=== PATIENT | female | born 1995 | race Caucasian/White ===

== ENCOUNTER 2022-03-14 16:58 | Emergency (ER) | payer OTHER, SELFPAY ==
--- NOTE | 2022-03-14 18:03 | HMH.EDUTC ---
[facility] [place] Disposition Clinical Impression: Insect bite Qualifiers: Encounter type: initial encounter Site of insect bite: forearm Laterality: right Qualified Code(s): S50.861A - Insect bite (nonvenomous) of right forearm, initial encounter; W57.XXXA - Bitten or stung by nonvenomous insect and other nonvenomous arthropods, initial encounter Cellulitis Qualifiers: Site of cellulitis: extremity Site of cellulitis of extremity: upper extremity Laterality: right Qualified Code(s): L03.113 - Cellulitis of right upper limb Disposition: Home, Self-Care Condition on Discharge: Good Instructions: Cellulitis, Insect Bites and Stings, DI for Insect Bites and Stings Additional Instructions: apply cream antibiotics as ordered follow up with pcp if worsen or no improvement return or be seen in ed benadryl otc Prescriptions: cephALEXin [Cephalexin 500mg Tab] 500 mg PO BID 7 Days #14 tab Prescription Printed Triamcinolone Acetonide 1 applic TP BID 7 Days #15 gm Prescription Printed Referrals: Provider,Referral, MD [Primary Care Provider] - Time of Disposition: 18:13 Medical Decision Making - Jesse Inquiry Pt receiving controlled substance: No [facility] [place] HPI - General Chief complaint: Urgent Treatment Center Stated complaint: possible bug bite Time Seen by Provider: 03/14/22 18:04 Mode of Arrival: Ambulatory Source of Information: Patient Limitations: No Limitations - History of Present Illness Provider Complaint: 26 yr old female presents for bug bites, pt states she is not sure what has biten her she has bites on left thigh and rt forearm. pt states rt forearm has gotten worse and the redness has increased. pt states it itches real bad - Related Data Previous Rx's Medication Instructions Recorded Triamcinolone Acetonide 1 applic TP BID 7 Days #15 gm 03/14/22 cephALEXin [Cephalexin 500mg Tab] 500 mg PO BID 7 Days #14 tab 03/14/22 [facility] History - Hepatitis A Screen Attestation statement:: This patient has been screened for Hepatitis A risk factors. I have reviewed the patient's past medical history: Yes ROS Obtained: Yes Systems reviewed as appropriate & no additional complaints - Constitutional Constitutional: Reports system reviewed and no additional complaints, except as docu, Denies fatigue, Denies fever(s) - Eyes Eyes: Reports system reviewed and no additional complaints, except as docu, Denies eye discharge - ENT Ears, Nose, Mouth, and Throat: Reports system reviewed and no additional complaints, except as docu, Denies otalgia, Denies sore throat - Cardiovascular Cardiovascular: Reports system reviewed and no additional complaints, except as docu, Denies chest pain - Respiratory Respiratory: Reports system reviewed and no additional complaints, except as docu, Denies shortness of breath - Gastrointestinal Gastrointestingal: Reports: system reviewed and no additional complaints, except as docu. Denies: abdominal pain - Musculoskeletal Musculoskeletal: Reports system reviewed and no additional complaints, except as docu, Denies joint pain - Integumentary/Breasts Skin/Breast: Reports system reviewed and no additional complaints, except as docu, Reports itching, Reports rash, Reports skin swelling - Neurologic Neurologic: Reports system reviewed and no additional complaints, except as docu, Denies headache(s) - Endocrine Endocrine: Reports system reviewed and no additional complaints, except as docu, Denies fatigue - Hematologic/Lymphatic Henatologic/Lymphatic: Reports system reviewed and no additional complaints, except as docu, Denies easy bruising - Allergic/Immunologic Allergic/Immunologic: Reports system reviewed and no additional complaints, except as docu, Denies itchy eyes Physical Exam - General General appearance: alert, in no apparent distress - Head Head exam: atraumatic, normocephalic, normal inspection - Eye Eye exam: Present: normal appearance, PERRL - ENT ENT exam:
[2022-03-14 18:10] VITALS: BP 128/83; PULSE 105; RESP 17; TEMP 37.2; O2SAT 98; BMI 19.2
[2022-03-14 18:22] VITALS: BP 128/83; PULSE 105; RESP 17; TEMP 37.2
== END 2022-03-14 18:23 | disposition home or self-care (01) ==
PROVIDERS: Emergency Provider Nurse Practitioner Family
DX: S50.861A Insect bite (nonvenomous) of right forearm, initial encounter (principal); W57.XXXA Bitten or stung by nonvenomous insect and other nonvenomous arthropods, initial encounter; L03.113 Cellulitis of right upper limb
CPT/HCPCS: 99212; G0463

== ENCOUNTER 2022-06-23 03:37 | Emergency (ER) | payer OTHER, SELFPAY ==
[2022-06-23] VITALS (10 sets, daily range): BP systolic 123–145; BP diastolic 83–99; PULSE 78–112; RESP 16–18; TEMP 36.6–36.8; O2SAT 99–100; BMI 20.5
--- NOTE | 2022-06-23 03:36 | ECG_ITS ---
APPROVED REPORT Exam: Resting ECG HR:101 bpm ECG Measurements Heart Rate 101 AXES ID 166 P 75 QRSd 92 QRS 91 QT 332 T 61 QTc 390 Conclusion SINUS TACHYCARDIA BORDERLINE RIGHT AXIS DEVIATION [QRS AXIS > 90] MINIMAL ST DEPRESSION [0.025+ mV ST DEPRESSION] ABNORMAL RHYTHM ECG UNCONFIRMED REPORT Electronically signed by : Renato Ramos MD 06/25/2022 21:30:33
--- NOTE | 2022-06-23 03:40 | XR_ITS ---
PROCEDURE INFORMATION: Exam: XR Chest Exam date and time: 06/23/2022 4:11 AM Age: 26 years old Clinical indication: Pain; Left-sided; Additional info: Cp TECHNIQUE: Imaging protocol: Radiologic exam of the chest. Views: 2 views. COMPARISON: No relevant prior studies available. FINDINGS: Lungs: No acute findings or consolidation. Pleural spaces: No pleural effusion. No pneumothorax. Heart/Mediastinum: No acute findings or cardiomegaly. Bones/joints: No acute findings. IMPRESSION: No acute cardiopulmonary findings.
[2022-06-23 03:52] LABS: Basophils # 0.1 K/mm3 (0-0.2); Basophils % 1.4 % (0.1-2.0); Eosinophils # 0.2 K/mm3 (0.0-0.4); Eosinophils % 1.7 % (0.1-12.0); Hematocrit 44.4 % (37.0-47.0); Hemoglobin 13.6 g/dL (12.2-16.2); Lymphocytes # 3.9 K/mm3 (0.7-4.5); Lymphocytes % 40.3 % (10-50); Mean Corpuscular HGB Conc 30.6 g/dL (31.8-35.4); Mean Corpuscular Hemoglobin 28.8 pg (27.0-31.2); Mean Corpuscular Volume 94.2 fl (81-99); Mean Platelet Volume 7.7 fl (7.4-10.4); Monocytes # 0.5 K/mm3 (0.1-1.0); Monocytes % 4.9 % (1.7-9.3); Neutrophils % 51.7 % (37.0-80.0); Platelet Count 263 K/mm3 (142-424); Red Blood Count 4.71 M/mm3 (4.20-5.40); Red Cell Distribution Width 13.5 % (11.5-17.5); White Blood Count 9.6 K/mm3 (4.8-10.8)
[2022-06-23 04:06] LABS: Alanine Aminotransferase 13 U/L (12-78); Albumin Level 4.5 g/dl (3.5-5.0); Albumin/Globulin Ratio 1.7 (1.1-1.8); Alkaline Phosphatase 52 U/L (38-126); Anion Gap 9.3 mEq/L (5-15); Aspartate Amino Transferase 23 U/L (14-36); Blood Urea Nitrogen 6 mg/dl (7-17); Calcium 8.6 mg/dl (8.4-10.2); Carbon Dioxide 29 mmol/L (22.0-30.0); Chloride 103 mmol/L (98-107); Creatinine Clearance Estimated 170 mL/min (50-200); Estimated Glomerular Filt Rate 149 ml/min (>60); GFR (African American) 180 ML/MIN (>60); Globulin 2.7 g/dL (1.3-3.2); Glucose 90 mg/dl (74-100); Potassium 3.3 mmoL/L (3.5-5.1); Sodium 138 mmol/L (136-145); Total Protein,Serum 7.2 g/dl (6.3-8.2)
[2022-06-23 04:11] LABS: C-Reactive Protein 0.4 mg/L (0-4)
[2022-06-23 04:17] LABS: HCG Qualitative, Serum Negative (Negative)
[2022-06-23 04:18] LABS: Bilirubin,Total < 0.1 mg/dl (0.2-1.3)
[2022-06-23 04:21] LABS: Troponin I < 0.01 ng/ml (0.00-0.034)
[2022-06-23 04:22] LABS: Erythrocyte Sedimentation Rate 5 mm/hr (0-20)
--- NOTE | 2022-06-23 04:23 | PC.NURSE ---
pt back in room from xray
[2022-06-23 04:29] LABS: Procalcitonin < 0.030 ng/mL (0.0-2.0)
--- NOTE | 2022-06-23 04:59 | CT_ITS ---
PROCEDURE INFORMATION: Exam: CTA Chest With Contrast Exam date and time: 06/23/2022 5:08 AM Age: 26 years old Clinical indication: Pain; Left-sided; Additional info: Cp TECHNIQUE: Imaging protocol: Computed tomographic angiography of the chest with contrast. 3D rendering (Not supervised by radiologist): MIP and/or 3D reconstructed images were created by the technologist. Radiation optimization: All CT scans at this facility use at least one of these dose optimization techniques: automated exposure control; mA and/or kV adjustment per patient size (includes targeted exams where dose is matched to clinical indication); or iterative reconstruction. Contrast material: ISOVUE 370; Contrast volume: 70 ml; Contrast route: INTRAVENOUS (IV); COMPARISON: CR XR CHEST 2V 06/23/2022 4:11 AM FINDINGS: Pulmonary arteries: No pulmonary emboli. Aorta: No aortic aneurysm. No aortic dissection. Lungs: No consolidation or infiltrate. No masses. Pleural spaces: No pneumothorax. No pleural effusion. Heart: No cardiomegaly. No pericardial effusion. Lymph nodes: No pathologically enlarged lymph nodes. Bones/joints: No acute fracture. Soft tissues: No acute findings. IMPRESSION: No acute findings.
--- NOTE | 2022-06-23 05:01 | PC.NURSE ---
ER in pt room speaking with pt at this time
--- NOTE | 2022-06-23 05:28 | HMH.EDCP ---
ED Disposition Clinical Impression: Atypical chest pain Disposition: Home, Self-Care Condition on Discharge: Good Instructions: DI for Atypical Chest Pain Additional Instructions: use meds and see pcp for follow up Prescriptions: predniSONE [Prednisone 20mg Tab] 20 mg PO BID #10 tab Transmission Status: Pending to [id number] Referrals: Provider,Referral, [Primary Care Provider] - - Critical Care Critical Care Time: No Attestation: On 06/23/22, the high probability of a clinically significant, sudden or life threatening deterioration of the following system(s) required my full and direct attention, intervention and personal management. The time I documented below is in addition to time spent performing reported procedures but includes the following listed in this critical care notation. Medical Decision Making - Medical Records Medical records reviewed: Yes: I reviewed the patient's medical records. - Jesse Inquiry Pt receiving controlled substance: No Vital Signs: 06/23/22 03:37 06/23/22 04:00 06/23/22 04:15 Temperature 98.2 F Temperature Source Oral Pulse Rate 82 78 Pulse Rate [Right] 112 H Respiratory Rate 16 Blood Pressure 129/83 123/90 Blood Pressure [Right Arm] 135/99 H Blood Pressure Mean Blood Pressure Mean [Right Arm] 111 02 Sat by Pulse Oximetry 99 100 100 Oxygen Delivery Method Room Air Room Air 06/23/22 04:30 06/23/22 04:51 06/23/22 05:05 Temperature Temperature Source Pulse Rate 82 80 85 Pulse Rate [Right] Respiratory Rate Blood Pressure 125/85 124/85 142/95 H Blood Pressure [Right Arm] Blood Pressure Mean Blood Pressure Mean [Right Arm] 02 Sat by Pulse Oximetry 100 100 100 Oxygen Delivery Method Room Air Room Air Room Air 06/23/22 05:36 06/23/22 05:51 06/23/22 06:06 Temperature Temperature Source Pulse Rate 89 85 93 H Pulse Rate [Right] Respiratory Rate Blood Pressure 131/84 125/86 144/96 H Blood Pressure [Right Arm] Blood Pressure Mean 96 95 107 Blood Pressure Mean [Right Arm] 02 Sat by Pulse Oximetry 100 100 100 Oxygen Delivery Method - Lab Data Lab results reviewed: Yes: I reviewed the patient's lab results. Lab Results 06/23/22 03:43: WBC 9.6, RBC 4.71, Hgb 13.6, Hct 44.4, MCV 94.2, MCH 28.8, MCHC 30.6 L, RDW 13.5, Plt Count 263, MPV 7.7, Neut % (Auto) 51.7, Lymph % (Auto) 40.3, [place] % (Auto) 4.9, Eos % (Auto) 1.7, Baso % (Auto) 1.4, Neut # (Auto) 5.0, Lymph # (Auto) 3.9, [place] # (Auto) 0.5, Eos # (Auto) 0.2, Baso # (Auto) 0.1 06/23/22 03:43: Sodium 138, Potassium 3.3 L, Chloride 103, Carbon Dioxide 29, Anion Gap 9.3, BUN 6 L, Creatinine 0.50 L, Estimated Creat Clear 170, Estimated GFR 149, Est GFR ( Amer) 180, Glucose 90, Calcium 8.6, Total Bilirubin < 0.1 L, AST 23, ALT 13, Alkaline Phosphatase 52, Troponin I < 0.01, C-Reactive Protein 0.4, Total Protein 7.2, Albumin 4.5, Globulin 2.7, Albumin/Globulin Ratio 1.7 06/23/22 03:43: ESR 5 06/23/22 03:43: Procalcitonin < 0.030 06/23/22 03:43: Serum HCG, Qual Negative Result diagrams: 06/23/22 03:43 06/23/22 03:43 Orders (Tests/Meds): ED MEDICATIONS Generic Name Dose Route Start Last Admin Trade Name Freq PRN Reason Stop Dose Admin Sodium Chloride 1,000 mls @ 999 mls/hr 06/23/22 04:00 06/23/22 03:49 Sod Chlor 0.9% 1000ml Bag IV 06/23/22 05:00 999 mls/hr .Q1H1M RICHARD Administration Discontinued Medications Generic Name Dose Route Start Last Admin Trade Name Freq PRN Reason Stop Dose Admin Aspirin 324 mg 06/23/22 03:46 06/23/22 03:49 Aspirin 81mg Chewable Tablet PO 06/23/22 03:47 324 mg ONCE ONE Administration Iopamidol 70 ml 06/23/22 05:38 06/23/22 05:40 Iopamidol-370 (76%);100ml Bottle IV 06/23/22 05:39 70 ml ONCE ONE Administration Ketorolac Tromethamine 30 mg 06/23/22 04:23 06/23/22 04:27 Ketorolac 30mg/Ml Vial IV 06/23/22 04:24 30 mg ONCE ONE Administration Sod
== END 2022-06-23 06:36 | disposition home or self-care (01) ==
PROVIDERS: Emergency Provider Emergency Medicine
DX: R07.89 Other chest pain (principal)
CPT/HCPCS: 71046; 71275; 80053; 84145; 84484; 84703; 85025; 85651; 86140; 93005; 96365; 96375; 99285; Q9967